=== PATIENT | female | born 1985 | race Caucasian/White ===

== ENCOUNTER 2021-09-05 22:48 | Emergency (ER) | payer OTHER, SELFPAY ==
--- NOTE | 2021-09-05 | ECG_ITS ---
Test Reason : SEPSIS Blood Pressure : / mmHG Vent. Rate : 136 BPM Atrial Rate : 136 BPM P-R Int : 104 ms QRS Dur : 078 ms QT Int : 374 ms P-R-T Axes : 000 081 031 degrees QTc Int : 562 ms Sinus tachycardia with short [place] Nonspecific ST and T wave abnormality Abnormal ECG No previous ECGs available Referred By: Tej Sheth Electronically Signed By:MARISOL BOYCE MD
--- NOTE | ~2021-09-05 | XR_ITS ---
EXAMINATION: XR CHEST CLINICAL INFORMATION: Fever COMPARISON: None TECHNIQUE: Frontal view of the chest was obtained. FINDINGS: Normal symmetric lung volumes. No parenchymal consolidation. No pleural effusion. No pneumothorax. Cardiomediastinal silhouette and pulmonary vascularity are within normal limits. No acute osseous abnormalities. XR/XR chest 1V IMPRESSION: No acute findings
[2021-09-05 22:51] VITALS: BP 138/72; BP 145/101; PULSE 140; PULSE 145; RESP 20; TEMP 38.2; O2SAT 95; O2SAT 98; BMI 30.9
--- NOTE | 2021-09-05 23:02 | ED_ITS ---
HPI - General Adult General Chief complaint: Arrhythmia/Palpitations Stated complaint: heart palpataitons Time Seen by Provider: 09/05/21 22:57 Source: patient Mode of arrival: ambulatory Limitations: no limitations History of Present Illness HPI narrative: Patient is 35 years old otherwise healthy work at [employer] her daughter was sick for last 2 days with cold symptoms today patient noticed nasal congestion fever palpitation weakness checked home test for COVID was negative feel short of breath fever of 100.7 with chest tightness and palpitation Related Data Allergies Allergy/AdvReac Type Severity Reaction Status Date / Time pollen extracts Allergy Sneezing Verified 09/05/21 22:57 Review of Systems Review of Systems: Yes all other systems are reviewed and are negative [facility] Social History Social History Alcohol intake: never Patient Tobacco Use Status: Never used Tobacco Use of substances other than those prescribed or required for medical reasons: No Advance Directives: No Physical Exam ED Vital Signs: Vital Signs - 24 hr 09/05/21 22:51 Temperature 100.7 F H Pulse Rate 145 H Respiratory Rate 20 Blood Pressure 145/101 H Pulse Oximetry 98 BMI result Body Mass Index 30.9 Appearance: Alert. Oriented X3. Moderate distress Eyes: No pallor or icterus ENT: Pharynx normal. Oral Mucosa moist Neck: Normal inspection. Neck supple. CVS: Sinus tachycardia, Pulses normal. Respiratory: No respiratory distress. Equal air entry bilateral, no wheezing/rales/rhonchi Abdomen: Soft and nontender. Bowel sounds are present, no mass palpable, no CVA tenderness Skin: Skin warm and dry. Normal skin color. Normal skin turgor. Extremities: No lower extremity edema. No calf tenderness Neuro: Oriented X 3. Medical Decision Making MDM Narrative Medical decision making narrative: Patient with influenza a with fever tachycardia secondary to viral illness not from bacterial sepsis patient has elevated lactic acid level secondary to viral illness will discharge patient home on Tamiflu and supportive treatment Lab Data Lab results reviewed: Yes I reviewed the patient's lab results. Result diagrams: 09/05/21 23:00 09/05/21 23:00 Labs: Lab Results 09/05/21 09/05/21 09/05/21 Range/Units 22:59 23:00 23:00 WBC 8.9 (4.8-10.8) X10*3/uL RBC 4.75 (4.20-5.50) X10*6/uL Hgb 13.6 (12.0-16.0) g/dl Hct 39.7 (37.0-47.0) % MCV 83.6 (80.0-98.0) fL MCH 28.6 (27.0-33.0) pg MCHC 34.3 (31.0-35.0) g/dl RDW 12.2 (11.0-16.0) % Plt Count 235 (160-400) X10*3/uL MPV 10.6 (9.4-12.3) fL Immature Gran % (Auto) 0.3 (0.0-0.4) % Neut % (Auto) 80.2 H (45-73) % Lymph % (Auto) 3.9 L (20-40) % [place] % (Auto) 11.5 H (2-11) % Eos % (Auto) 3.8 (0-4) % Baso % (Auto) 0.3 (0-2) % Lymph # (Auto) 0.4 L (1.2-4.9) X10*3/uL [place] # (Auto) 1.0 (0.1-1.2) X10*3/uL Eos # (Auto) 0.3 (0.0-0.4) X10*3/uL Baso # (Auto) 0.0 (0.0-0.2) X10*3/uL Abs Immat Gran (auto) 0.03 (0.00-0.03) X10*3/uL Absolute Neuts (auto) 7.2 (2.0-8.3) x10*3/uL Absolute Nucleated RBC 0.000 (0.0-0.012) X10*3/uL Nucleated RBC % (auto) 0.0 (0.0-0.2) /100WBC PT 11.5 (9.9-13.0) SEC INR 1.0 (0.9-1.1) Sodium 139 (135-145) mmol/L Potassium 3.7 (3.3-5.1) mmol/L Chloride 107 (96-108) mmol/L Carbon Dioxide 22 (22-29) mmol/L Anion Gap 14 (12-20) BUN 8 L (9-16) mg/dL Creatinine 0.78 (0.5-1.4) mg/dL Estim Creat Clear Calc 87.0 Estimated GFR > 60 Random Glucose 151 H (60-115) mg/dL Lactic Acid (0.5-2.0) mmol/L Calcium 9.8 (8.4-10.2) mg/dL Total Bilirubin 0.4 (0.0-1.0) mg/dL Direct Bilirubin 0.2 (0.0-0.5) mg/dL AST 15 (5-31) U/L ALT 26 (0-31) U/L Alkaline Phosphatase 36 L (39-117) U/L Total Protein 7.0 (6.5-8.0) g/dL Albumin 4.2 (3.5-5.0) g/dL Urine Color Urine Appearance Urine pH (5.0-8.0) Ur Specific [place] (1.005-1.025) Urine Protein (NEG-TRACE) MG/DL Urine Glucose (UA) (NEG) MG/DL Urine Ketones (NEG) MG/DL Urine Blood (NEG) Urine Nitrite (NEG) Ur Leukocyte Esterase (NEG) Urine RBC (0) /HPF Urine WBC (0-4) /HPF Ur Squamous Epith Cells /LPF Calcium Phosphate Cryst /LPF Amorphous Sediment /LPF Urine Bacteria /LPF Urine Test (NEGATIVE) COVID-19 (CARIN) (Negative) COVID-19 Clin Com Influenza Type A (TOM) (Negative) Influenza Type B (TOM) (Negative) Influenza A & B Note 09/05/21 09/05/21 09/05/21 Range/Units 23:00 23:00 23:01 WBC (4.8-10.8) X10*3/uL RBC (4.20-5.50) X10*6/uL Hgb (12.0-16.0) g/dl Hct (37.0-47.0) % MCV (80.0-98.0) fL MCH (27.0-33.0) pg MCHC (31.0-35.0) g/dl RDW (11.0-16.0) % Plt Count (160-400) X10*3/uL MPV (9.4-12.3) fL Immature Gran % (Auto) (0.0-0.4) % Neut % (Auto) (45-73) % Lymph % (Auto) (20-40) % [place] % (Auto) (2-11) % Eos % (Auto) (0-4) % Baso % (Auto) (0-2) % Lymph # (Auto) (1.2-4.9) X10*3/uL [place] # (Auto) (0.1-1.2) X10*3/uL Eos # (Auto) (0.0-0.4) X10*3/uL Baso # (Auto) (0.0-0.2) X10*3/uL Abs Immat Gran (auto) (0.00-0.03) X10*3/uL Absolute Neuts (auto) (2.0-8.3) x10*3/uL Absolute Nucleated RBC (0.0-0.012) X10*3/uL Nucleated RBC % (auto) (0.0-0.2) /100WBC PT (9.9-13.0) SEC INR (0.9-1.1) Sodium (135-145) mmol/L Potassium (3.3-5.1) mmol/L Chloride (96-108) mmol/L Carbon Dioxide (22-29) mmol/L Anion Gap (12-20) BUN (9-16) mg/dL Creatinine (0.5-1.4) mg/dL Estim Creat Clear Calc Estimated GFR Random Glucose (60-115) mg/dL Lactic Acid 4.0 H* (0.5-2.0) mmol/L Calcium (8.4-10.2) mg/dL Total Bilirubin (0.0-1.0) mg/dL Direct Bilirubin (0.0-0.5) mg/dL AST (5-31) U/L ALT (0-31) U/L Alkaline Phosphatase (39-117) U/L Total Protein (6.5-8.0) g/dL Albumin (3.5-5.0) g/dL Urine Color Urine Appearance Urine pH (5.0-8.0) Ur Specific [place] (1.005-1.025) Urine Protein (NEG-TRACE) MG/DL Urine Glucose (UA) (NEG) MG/DL Urine Ketones (NEG) MG/DL Urine Blood (NEG) Urine Nitrite (NEG) Ur Leukocyte Esterase (NEG) Urine RBC (0) /HPF Urine WBC (0-4) /HPF Ur Squamous Epith Cells /LPF Calcium Phosphate Cryst /LPF Amorphous Sediment /LPF Urine Bacteria /LPF Urine Test (NEGATIVE) COVID-19 (CARIN) Negative (Negative) COVID-19 Clin Com See Note Influenza Type A (TOM) Positive A (Negative) Influenza Type B (TOM) Negative (Negative) Influenza A & B Note See Note 09/05/21 09/05/21 Range/Units 23:13 23:13 WBC (4.8-10.8) X10*3/uL RBC (4.20-5.50) X10*6/uL Hgb (12.0-16.0) g/dl Hct (37.0-47.0) % MCV (80.0-98.0) fL MCH (27.0-33.0) pg MCHC (31.0-35.0) g/dl RDW (11.0-16.0) % Plt Count (160-400) X10*3/uL MPV (9.4-12.3) fL Immature Gran % (Auto) (0.0-0.4) % Neut % (Auto) (45-73) % Lymph % (Auto) (20-40) % [place] % (Auto) (2-11) % Eos % (Auto) (0-4) % Baso % (Auto) (0-2) % Lymph # (Auto) (1.2-4.9) X10*3/uL [place] # (Auto) (0.1-1.2) X10*3/uL Eos # (Auto) (0.0-0.4) X10*3/uL Baso # (Auto) (0.0-0.2) X10*3/uL Abs Immat Gran (auto) (0.00-0.03) X10*3/uL Absolute Neuts (auto) (2.0-8.3) x10*3/uL Absolute Nucleated RBC (0.0-0.012) X10*3/uL Nucleated RBC % (auto) (0.0-0.2) /100WBC PT (9.9-13.0) SEC INR (0.9-1.1) Sodium (135-145) mmol/L Potassium (3.3-5.1) mmol/L Chloride (96-108) mmol/L Carbon Dioxide (22-29) mmol/L Anion Gap (12-20) BUN (9-16) mg/dL Creatinine (0.5-1.4) mg/dL Estim Creat Clear Calc Estimated GFR Random Glucose (60-115) mg/dL Lactic Acid (0.5-2.0) mmol/L Calcium (8.4-10.2) mg/dL Total Bilirubin (0.0-1.0) mg/dL Direct Bilirubin (0.0-0.5) mg/dL AST (5-31) U/L ALT (0-31) U/L Alkaline Phosphatase (39-117) U/L Total Protein (6.5-8.0) g/dL Albumin (3.5-5.0) g/dL Urine Color YELLOW Urine Appearance CLEAR Urine pH 7.0 (5.0-8.0) Ur Specific [place] 1.010 (1.005-1.025) Urine Protein NEG (NEG-TRACE) MG/DL Urine Glucose (UA) NEG (NEG) MG/DL Urine Ketones NEG (NEG) MG/DL Urine Blood 3+ H (NEG) Urine Nitrite NEG (NEG) Ur Leukocyte Esterase NEG (NEG) Urine RBC 0 (0) /HPF Urine WBC 0-2 (0-4) /HPF Ur Squamous Epith Cells 2+ /LPF Calcium Phosphate Cryst 1+ /LPF Amorphous Sediment 3+ /LPF Urine Bacteria NONE /LPF Urine Test NEGATIVE (NEGATIVE) COVID-19 (CARIN) (Negative) COVID-19 Clin Com Influenza Type A (TOM) (Negative) Influenza Type B (TOM) (Negative) Influenza A & B Note Discharge Plan Discharge Clinical Impression: Influenza A
[2021-09-05 23:06] LABS: MANUAL DIFF FLAG NO
[2021-09-05 23:08] LABS: Basophils Percent Auto 0.3 % (0-2); Eosinophils Absolute Auto 0.3 X10*3/uL (0.0-0.4); Eosinophils Percent Auto 3.8 % (0-4); Hematocrit 39.7 % (37.0-47.0); Hemoglobin 13.6 g/dl (12.0-16.0); Imm Gran Abs Auto 0.03 X10*3/uL (0.00-0.03); Imm Gran Pct Auto 0.3 % (0.0-0.4); Lymphocytes Absolute Auto 0.4 X10*3/uL (1.2-4.9); Lymphocytes Percent Auto 3.9 % (20-40); Mean Corpuscular HGB Conc 34.3 g/dl (31.0-35.0); Mean Corpuscular Hemoglobin 28.6 pg (27.0-33.0); Mean Corpuscular Volume 83.6 fL (80.0-98.0); Mean Platelet Volume 10.6 fL (9.4-12.3); Monocytes Percent Auto 11.5 % (2-11); Neutrophils Absolute Auto 7.2 x10*3/uL (2.0-8.3); Neutrophils Percent Auto 80.2 % (45-73); Platelet Count 235 X10*3/uL (160-400); Red Blood Count 4.75 X10*6/uL (4.20-5.50); Red Cell Distribution Width 12.2 % (11.0-16.0); White Blood Count 8.9 X10*3/uL (4.8-10.8)
[2021-09-05 23:17] LABS: Prothrombin Time 11.5 SEC (9.9-13.0)
[2021-09-05] MEDS: 0.9 % Sodium Chloride 2,500 ML 2500 ML IV (23:20)
[2021-09-05] MEDS: cefTRIAXone sodium 1 GM in 0.9 % Sodium Chloride 50 ML IV (23:20)
[2021-09-05] MEDS: Acetaminophen 325 MG TABLET 650 MG PO (23:21)
[2021-09-05 23:26] LABS: Alanine Aminotransferase 26 U/L (0-31); Albumin Level 4.2 g/dL (3.5-5.0); Alkaline Phosphatase 36 U/L (39-117); Anion Gap 14 (12-20); Aspartate Amino Transferase 15 U/L (5-31); Bilirubin Direct 0.2 mg/dL (0.0-0.5); Bilirubin Total 0.4 mg/dL (0.0-1.0); Blood Urea Nitrogen 8 mg/dL (9-16); Calcium 9.8 mg/dL (8.4-10.2); Carbon Dioxide 22 mmol/L (22-29); Chloride 107 mmol/L (96-108); Estimated Glomerular Filt Rate > 60; Glucose Random 151 mg/dL (60-115); IDNOW Serial# 55D5AD1C; Influenza A Positive (Negative); Influenza B2 Negative (Negative); Potassium 3.7 mmol/L (3.3-5.1); Sodium 139 mmol/L (135-145)
[2021-09-05 23:28] LABS: Appearance Urine CLEAR; Color Urine YELLOW; Glucose Urine UA NEG (NEG); Leukocyte Esterase Urine NEG (NEG); Nitrite Urine NEG (NEG); UACC Culture Trigger NO; Urine Blood 3+ (NEG); Urine Ketones NEG (NEG); Urine Protein NEG (NEG-TRACE)
[2021-09-05 23:33] LABS: COVID-19 Test Negative (Negative)
[2021-09-05 23:45] LABS: UPreg QC Valid YES; Urine Pregnancy NEGATIVE (NEGATIVE)
[2021-09-05] MEDS: Metoprolol Tartrate 5 MG/5 ML VIAL IVPUSH (23:51)
[2021-09-05 23:56] LABS: Amorphous Sediment Urine 3+ /LPF; Calcium Phosphate Crystals Ur 1+ /LPF; RBC Urine 0 /HPF (0); Squamous Epithelial Cell Urine 2+ /LPF; WBC Urine 0-2 /HPF (0-4)
[2021-09-06 00:21] VITALS: TEMP 36.8
[2021-09-06 00:37] VITALS: BP 98/65; PULSE 112; RESP 19; TEMP 36.8; O2SAT 96
[2021-09-06 00:40] VITALS: BP 103/65; PULSE 111; RESP 19; TEMP 36.8; O2SAT 96
[2021-09-06 01:11] VITALS: BP 100/65; PULSE 109; RESP 17; O2SAT 96
[2021-09-06 01:11] LABS: Reflex Lactate? Lactic Acid Added
== END 2021-09-06 01:30 | disposition home or self-care (01) ==
PROVIDERS: Emergency Provider Internal Medicine
DX: J10.1 Influenza due to other identified influenza virus with other respiratory manifestations (principal); Z20.822 Contact with and (suspected) exposure to COVID-19
CPT/HCPCS: 36415; 71045; 80053; 81001; 81025; 82248; 83605; 85025; 85610; 87040; 87502; 87635; 93005; 96361; 96374; 96375; 99285; J0696

== ENCOUNTER 2023-11-04 17:51 | Emergency (ER) | payer SELFPAY ==
--- NOTE | ~2023-11-04 | CT_ITS ---
EXAMINATION: CT ABDOMEN AND PELVIS WITHOUT CONTRAST CLINICAL INFORMATION: Right flank pain. COMPARISON: None available. TECHNIQUE: Multidetector volumetric imaging was performed from the superior aspect of the liver through the pubic symphysis. Sagittal and coronal reformatted images were obtained on the technologist's workstation. This CT examination was performed using dose optimization techniques as appropriate, variously including the following: *Automated exposure control *Adjustment of mA and/or kV according to patient size (this includes techniques or standardized protocols for targeted exams where dose is matched to indication/reason for exam; i.e. extremities or head) *Use of iterative reconstruction technique DLP: 462 mGy-cm FINDINGS: LUNG BASES: The visualized lung bases are unremarkable. LIVER, GALLBLADDER, AND BILIARY TREE: The liver is normal in size, shape, and attenuation. There are small hepatic calcifications, possibly related to old granulomatous disease. No focal hepatic lesion or biliary ductal dilatation is present. The gallbladder is unremarkable with no evidence of radiopaque gallstones, gallbladder wall thickening, or obvious pericholecystic inflammatory changes. PANCREAS: Unremarkable. SPLEEN: Unremarkable. ADRENAL GLANDS: Unremarkable. KIDNEYS AND URETERS: The kidneys are normal in size, shape, and attenuation. No hydronephrosis, hydroureter, or calculi seen. No perinephric stranding. BLADDER: Unremarkable. GASTROINTESTINAL TRACT: The small and large bowel are unremarkable. The appendix is unremarkable. ABDOMINAL WALL: No significant hernia is appreciated. LYMPH NODES: Normal. VASCULAR: Unremarkable. PELVIC VISCERA: The uterus is somewhat prominent, raising the possibility of fibroid disease. No adnexal mass or pelvic free fluid is seen. OSSEOUS STRUCTURES: There is a transitional appearance of the lumbar spine. No acute or aggressive osseous finding is noted. CT/CT abdomen pelvis wo IV con IMPRESSION: 1. No urinary calculus, obstruction or mass is seen. 2. The uterus is somewhat prominent, raising the possibility of fibroid replacement. This could be further evaluated with pelvic ultrasound, if clinically indicated. 3. There is no bowel obstruction, free intraperitoneal air or abscess. No appendicitis or diverticulitis is seen. 4. No abdominopelvic lymphadenopathy or ascites is seen. 5. Osseous structures are unremarkable. Fleischner guidelines were followed.
[2023-11-04 17:59] VITALS: BP 136/86; BP 136/87; PULSE 104; PULSE 118; RESP 18; TEMP 37.1; O2SAT 98; O2SAT 99; BMI 28.4
--- NOTE | 2023-11-04 18:11 | ED_ITS ---
HPI - Abdominal Pain General Chief Complaint: Abdominal Pain Stated Complaint: 9/10 R side abd pain Time Seen by Provider: 11/04/23 18:00 History of Present Illness HPI narrative: Patient is a 38-year-old female presents today with having abdominal pain over the right flank radiating to the right upper quadrant area. It is very sharp. Patient ate some pulled pork sandwich at around 11:30 in the morning the pain started about 17:00. There is no fever no chills. There is no pain on urination. Patient is currently having her menstruation. Denies any history of kidney stone. Any history of gallstones. Any history of abdominal surgery. Patient has had a bowel movement yesterday. No coughing or congestion or upper respiratory symptoms. No chest pain or diaphoresis. She is from home. No recreational drug use. Related Data Previous Rx's ?Medication ?Instructions ?Recorded oseltamivir 75 mg capsule (Tamiflu) 75 mg PO BID 5 days #10 caps 09/06/21 Allergies Allergy/AdvReac Type Severity Reaction Status Date / Time pollen extracts Allergy Sneezing Verified 11/04/23 18:09 Review of Systems Review of Systems Positive abdominal pain in the right flank area Yes all other systems are reviewed and are negative PMFSH Past Medical History Attestation statement: The following information was validated with the patient. Social History Social History Alcohol intake: never Patient Tobacco Use Status: Never used Tobacco Smoked in Last 30 Days: No Advance Directives: No Advance Directives Information Provided: No Do you have a plan to hurt others: No Plan Patient : No Physical Exam ED Vital Signs: Vital Signs - 24 hr 11/04/23 17:59 11/04/23 18:12 11/04/23 19:31 Temperature 98.7 F 98.7 F 97.9 F Pulse Rate 104 H 104 H 98 Respiratory Rate 18 18 14 Blood Pressure 136/86 136/86 130/81 Pulse Oximetry 98 98 100 Oxygen Delivery Method Room Air Room Air Room Air BMI result Body Mass Index 28.4 Appearance: Alert. Oriented X3. No acute distress. Eyes: Pupils equal, round and reactive to light. ENT: Pharynx normal. Neck: Normal inspection. Neck supple. No lymph nodes noted. No crepitus CVS: Normal heart rate and rhythm. Pulses normal. Normal S1 and S2 Respiratory: No respiratory distress. Breath sounds normal. No Wheezing. No rales Abdomen: Soft and nontender. No rigidity. No distention. good BS x4 Skin: Skin warm and dry. Normal skin color. Normal skin turgor. Extremities: No lower extremity edema. Neurovascular intact to all extremities. No Lacerations. No Rash Neuro: Oriented X 3. No motor deficit. No sensory deficit. Moving all extermities. No slurred speech Medical Decision Making Medical Decision Making MDM Narrative: Patient is a 38-year-old female complaining of right upper quadrant right flank pain. The pain is sharp. There has no specific trigger. Patient had a meal approximately 4-5 hours prior. Her white count was 12. Her urine showed small amount of blood but patient is also having her menstruation. test was negative. CT scan of the abdomen pelvis is currently pending. Differential includes biliary disease which is less likely in the setting of normal LFTs. No evidence for pancreatitis as patient's lipase is normal. Renal colic is another possibility. Currently pending CT scan. Differential Diagnosis Differential Diagnoses: The differential diagnosis associated with the presentation includes Renal colic, biliary disease, pancreatitis, gastritis, related issues, urinary tract infection, pyelonephritis Admission/Observation Consideration of admission/observation: Escalation of care including admission/observation considered Lab Data MDM Lab Attestation statement: I reviewed the patient's lab results. 11/04/23 18:17 11/04/23 18:17 Labs: Lab Results 11/04/23 Range/Units 18:17 WBC 12.7 H (4.8-10.8) X10*3/uL RBC 4.92 (4.20-5.50) X10*6/uL Hgb 14.5 (12.0-16.0) g/dl Hct 42.0 (37.0-47.0) % MCV 85.4 (80.0-98.0) fL MCH 29.5 (27.0-33.0) pg MCHC 34.5 (31.0-35.0) g/dl RDW 12.5 (11.0-16.0) % Plt Count 283 (160-400) X10*3/uL MPV 10.5 (9.4-12.3) fL Immature Gran % (Auto) 0.4 (0.0-0.4) % Neut % (Auto) 65.7 (45-73) % Lymph % (Auto) 24.0 (20-40) % [place] % (Auto) 7.5 (2-11) % Eos % (Auto) 2.0 (0-4) % Baso % (Auto) 0.4 (0-2) % Lymph # (Auto) 3.1 (1.2-4.9) X10*3/uL [place] # (Auto) 1.0 (0.1-1.2) X10*3/uL Eos # (Auto) 0.3 (0.0-0.4) X10*3/uL Baso # (Auto) 0.1 (0.0-0.2) X10*3/uL Abs Immat Gran (auto) 0.05 H (0.00-0.03) X10*3/uL Absolute Neuts (auto) 8.4 H (2.0-8.3) x10*3/uL Absolute Nucleated RBC 0.000 (0.0-0.012) X10*3/uL Nucleated RBC % (auto) 0.0 (0.0-0.2) /100WBC Sodium 140 (135-145) mmol/L Potassium 3.5 (3.3-5.1) mmol/L Chloride 104 (96-108) mmol/L Carbon Dioxide 24 (22-29) mmol/L Anion Gap 16 (12-20) BUN 12 (9-16) mg/dL Creatinine 0.68 (0.5-1.4) mg/dL Estim Creat Clear Calc 101.1 Estimated GFR > 60 Random Glucose 104 (60-115) mg/dL Calcium 9.2 D (8.4-10.2) mg/dL Total Bilirubin 0.5 (0.0-1.0) mg/dL Direct Bilirubin 0.1 (0.0-0.5) mg/dL AST 14 (5-31) U/L ALT 19 (0-31) U/L Alkaline Phosphatase 31 L (39-117) U/L Total Protein 7.3 (6.5-8.0) g/dL Albumin 4.4 (3.5-5.0) g/dL Lipase 21 (8-78) U/L Urine Color Yellow Urine Appearance Clear Urine pH 6.5 (5.0-9.0) Ur Specific [place] 1.020 (1.005-1.025) Urine Protein 30 (1+) H (Neg-Trace) mg/dL Urine Glucose (UA) Negative (Negative) mg/dL Urine Ketones Trace (Negative) mg/dL Urine Blood Trace H (Negative) Urine Nitrite Negative (Negative) Ur Leukocyte Esterase Negative (Negative) Urine RBC 0-2 (0-2) /HPF Urine WBC 0-5 (0-5) /HPF Ur Squamous Epith Cells 3-5 (0-2) /HPF Urine Bacteria Trace (None Seen) Hyaline Casts 0-2 (0-2) /LPF Urine Test NEGATIVE (NEGATIVE) Medications Administered Discontinued Medications Generic Name Dose Route Start Last Admin Trade Name Freq PRN Reason Stop Dose Admin Sodium Chloride 1,000 mls @ 999 mls/hr 11/04/23 18:15 11/04/23 18:30 Ns IV 11/04/23 19:15 999 mls/hr .Q1H1M RACQUEL Administration Sodium Chloride 1,000 mls @ 999 mls/hr 11/04/23 18:15 11/04/23 18:35 Ns IV 11/04/23 19:15 999 mls/hr .Q1H1M RACQUEL Administration Ketorolac Tromethamine 30 mg 11/04/23 18:08 11/04/23 18:29 Ketorolac Tromethamine 30 Mg/Ml Vial IVPUSH 11/04/23 18:09 30 mg ONCE ONE Administration Ondansetron HCl 4 mg 11/04/23 18:08 11/04/23 18:29 Ondansetron Hcl 4 Mg/2 Ml Vial IVPUSH 11/04/23 18:09 4 mg ONCE ONE Administration Discharge Plan Discharge Clinical Impression: Abdominal pain Patient Disposition: Still a Patient Prescriptions: No Action oseltamivir [Tamiflu] 75 mg capsule 75 mg PO BID 5 Days Qty: 10 0RF Print Language: Yoruba
[2023-11-04 18:12] VITALS: BP 136/86; PULSE 104; RESP 18; TEMP 37.1; O2SAT 98
[2023-11-04] MEDS: ondansetron HCL 4 MG/2 ML VIAL IVPUSH (18:29)
[2023-11-04] MEDS: Ketorolac Tromethamine 30 MG/ML VIAL IVPUSH (18:29)
[2023-11-04] MEDS: 0.9 % Sodium Chloride 1,000 ML 999 ML IV ×2 (18:30→18:35)
[2023-11-04 18:32] LABS: MANUAL DIFF FLAG NO
[2023-11-04 18:33] LABS: Basophils Absolute Auto 0.1 X10*3/uL (0.0-0.2); Basophils Percent Auto 0.4 % (0-2); Eosinophils Absolute Auto 0.3 X10*3/uL (0.0-0.4); Hemoglobin 14.5 g/dl (12.0-16.0); Imm Gran Abs Auto 0.05 X10*3/uL (0.00-0.03); Imm Gran Pct Auto 0.4 % (0.0-0.4); Lymphocytes Absolute Auto 3.1 X10*3/uL (1.2-4.9); Mean Corpuscular HGB Conc 34.5 g/dl (31.0-35.0); Mean Corpuscular Hemoglobin 29.5 pg (27.0-33.0); Mean Corpuscular Volume 85.4 fL (80.0-98.0); Mean Platelet Volume 10.5 fL (9.4-12.3); Monocytes Percent Auto 7.5 % (2-11); Neutrophils Absolute Auto 8.4 x10*3/uL (2.0-8.3); Neutrophils Percent Auto 65.7 % (45-73); Platelet Count 283 X10*3/uL (160-400); Red Blood Count 4.92 X10*6/uL (4.20-5.50); Red Cell Distribution Width 12.5 % (11.0-16.0); White Blood Count 12.7 X10*3/uL (4.8-10.8)
[2023-11-04 18:35] LABS: Appearance Urine Clear; Color Urine Yellow; Glucose Urine UA Negative (Negative); Leukocyte Esterase Urine Negative (Negative); Nitrite Urine Negative (Negative); PH 6.5 (5.0-9.0); UMIC TRIGGER UACC YES; Urine Blood Trace (Negative); Urine Ketones Trace mg/dL (Negative); Urine Protein 30 (1+) mg/dL (Neg-Trace)
[2023-11-04 18:37] LABS: Bacteria Urine Trace (None Seen); Hyaline Casts Urine 0-2 /LPF (0-2); RBC Urine 0-2 /HPF (0-2); WBC Urine 0-5 /HPF (0-5)
[2023-11-04 18:39] LABS: UPreg QC Valid YES; Urine Pregnancy NEGATIVE (NEGATIVE)
[2023-11-04 18:50] LABS: Alanine Aminotransferase 19 U/L (0-31); Albumin Level 4.4 g/dL (3.5-5.0); Alkaline Phosphatase 31 U/L (39-117); Anion Gap 16 (12-20); Aspartate Amino Transferase 14 U/L (5-31); Bilirubin Direct 0.1 mg/dL (0.0-0.5); Bilirubin Total 0.5 mg/dL (0.0-1.0); Blood Urea Nitrogen 12 mg/dL (9-16); Calcium 9.2 mg/dL (8.4-10.2); Carbon Dioxide 24 mmol/L (22-29); Chloride 104 mmol/L (96-108); Creatinine Clr Calc Pharmacy 101.1; Estimated Glomerular Filt Rate > 60; Glucose Random 104 mg/dL (60-115); Lipase 21 U/L (8-78); Potassium 3.5 mmol/L (3.3-5.1); Sodium 140 mmol/L (135-145); Total Protein 7.3 g/dL (6.5-8.0)
[2023-11-04 19:31] VITALS: BP 130/81; PULSE 98; RESP 14; TEMP 36.6; O2SAT 100
[2023-11-04 21:13] VITALS: BP 119/81; PULSE 88; RESP 14; TEMP 36.7; O2SAT 98
[2023-11-04 23:19] VITALS: BP 122/84; PULSE 85; RESP 14; TEMP 36.6; O2SAT 99
[2023-11-04 23:32] VITALS: BP 131/87; PULSE 89; RESP 18; TEMP 36.6; O2SAT 98
== END 2023-11-04 23:02 | disposition home or self-care (01) ==
PROVIDERS: Emergency Medicine Emergency Medical Services; Emergency Provider Emergency Medicine
DX: R10.9 Unspecified abdominal pain (principal)
CPT/HCPCS: 36415; 74176; 80048; 80076; 81001; 81025; 83690; 85025; 96361; 96374; 96375; 99284; 99285; J1885; J2405

== ENCOUNTER → 2023-11-18 10:11 | Outpatient (BNVA) | payer SELFPAY | DX: Z02.83 Encounter for blood-alcohol and blood-drug test (principal) ==